=== PATIENT | male | born 1945 | race Two or more races ===

== ENCOUNTER 2022-05-12 11:28 | Inpatient (IN) | payer OTHER ==
[~2022-05-12] VITALS: Ht 177.8 cm; Wt 55.0 kg
[2022-05-12 12:36] LABS: Albumin 2.5 g/dL (3.4-5.0); Calcium 8.5 mg/dL (8.5-10.1); Potassium 3.6 mmol/L (3.5-5.1)
[2022-05-12 12:41] LABS: BUN/Creatinine Ratio 18.9; Bilirubin, Total 17.5 mg/dL (0.2-1.0); Total Protein 6.7 g/dL (6.4-8.2)
[2022-05-12 12:46] LABS: Hematocrit 20.2 % (41.0-53.0); Mean Corpuscular Hemoglobin 32.2 pg (28.0-32.0); Mean Corpuscular Hgb Conc. 34.4 g/dL (32.0-36.0); Mean Corpuscular Volume 93.7 fL (80.0-100.0); Red Blood Cells 2.16 10^6/uL (4.5-5.90); White Blood Cell 3.4 10^3/uL (4.4-10.8)
[2022-05-12 13:17] LABS: Basophils % (manual) 0 (0.0-2.0); Blast Cells 0; Eosinophils % (manual) 0 (0-7); Metamyelocytes % 0; Myelocytes % 0; Promyelocytes % 0; Reactive Lymphocytes 0
[2022-05-12 16:31] LABS: Band Neutrophils % (manual) 1; Lymphocytes % (manual) 21 (10.0-50.0); Monocytes % (manual) 5 (0-12)
[2022-05-12 19:10] VITALS: BP 122/59
[2022-05-12 19:25] VITALS: BP 128/57
[2022-05-12 19:40] VITALS: BP 116/63
[2022-05-12 21:40] VITALS: BP 117/61
[2022-05-12] MEDS ORDERED: ONDANSETRON HCL 4 MG/2 ML VIAL IV PRN (21:45)
[2022-05-12 22:18] VITALS: BP 116/54
[2022-05-13 02:42] VITALS: BP 104/56
[2022-05-13 05:30] VITALS: BP 113/67
[2022-05-13 05:31] LABS: Urine Bacteria NONE SEEN /hpf (None Seen); Urine Blood Negative /uL (Negative); Urine Mucus FEW (None Seen); Urine Specific Gravity 1.022 (1.001-1.035); Urine WBC 4 /hpf (0 - 3)
[2022-05-13 05:54] LABS: Albumin 2.1 g/dL (3.4-5.0); Potassium 3.9 mmol/L (3.5-5.1)
[2022-05-13 05:58] LABS: BUN/Creatinine Ratio 21.2; Bilirubin, Total 16.9 mg/dL (0.2-1.0); Total Protein 5.8 g/dL (6.4-8.2)
[2022-05-13 06:14] LABS: White Blood Cell 2.8 10^3/uL (4.4-10.8)
[2022-05-13 06:15] LABS: Hematocrit 22.4 % (41.0-53.0); Mean Corpuscular Hemoglobin 33.1 pg (28.0-32.0); Mean Corpuscular Hgb Conc. 35.6 g/dL (32.0-36.0); Mean Corpuscular Volume 92.9 fL (80.0-100.0); Red Blood Cells 2.41 10^6/uL (4.5-5.90); Red Cell Distribution Width 17.3 % (11.8-14.3)
[2022-05-13 06:26] LABS: Band Neutrophils % (manual) 0; Basophils % (manual) 0 (0.0-2.0); Blast Cells 0; Metamyelocytes % 0; Myelocytes % 0; Promyelocytes % 0; Reactive Lymphocytes 0
[2022-05-13 07:07] LABS: Eosinophils % (manual) 3 (0-7); Lymphocytes % (manual) 21 (10.0-50.0); Monocytes % (manual) 8 (0-12)
[2022-05-13 09:00] VITALS: BP 96/49
[2022-05-13] MEDS ORDERED: PANTOPRAZOLE 40 MG TAB PO SCH (10:00)
[2022-05-13 13:00] VITALS: BP 105/53
== END 2022-05-13 17:00 | disposition home or self-care (01) | DRG 374 ==
LOC: ER 11:28 → OVERFLOW 21:40 → WEST WING 05-13 02:27
PROVIDERS: ADMIT Nurse Practitioner; ATTEND Internal Medicine Geriatric Medicine
PROC: 30233N1 Transfusion of Nonautologous Red Blood Cells into Peripheral Vein, Percutaneous Approach (ICD-10-PCS; principal; 2022-05-12)
DX: C18.9 Malignant neoplasm of colon, unspecified (principal); E43 Unspecified severe protein-calorie malnutrition; C78.7 Secondary malignant neoplasm of liver and intrahepatic bile duct; D61.818 Other pancytopenia; R23.1 Pallor; Z20.822 Contact with and (suspected) exposure to COVID-19; F17.210 Nicotine dependence, cigarettes, uncomplicated; Z85.038 Personal history of other malignant neoplasm of large intestine; Z92.21 Personal history of antineoplastic chemotherapy; D63.0 Anemia in neoplastic disease
CPT/HCPCS: 36415; 36430; 80053; 81001; 82140; 84484; 85007; 85027; 86850; 86900; 86901; 86920; 93005; 99291; G0378